=== PATIENT | female | born 1965 | race Caucasian/White ===

== ENCOUNTER 2016-12-14 11:14 | Day surgery (SDC) | payer OTHER ==
[~2016-12-14] VITALS: Ht 167.6 cm; Wt 82.5 kg
[~2016-12-14 11:14] MED LIST: DICY10CA56 PO; LIPA1CAP64 PO; Lactated Ringer's 1,000 ML IV ONE; METO25TA99 PO
[2016-12-14] MEDS ORDERED: Propofol 10,000 mCg/mL 20 mL Inj ONE (11:15)
[2016-12-14 11:41] VITALS: BP 141/77; PULSE 61; RESP 16; O2SAT 99
[2016-12-14] MEDS ORDERED: Lactated Ringer's 1,000 ML IV SCH (12:22)
[2016-12-14] MEDS ORDERED: MetoCLOpramide 5 mg/mL 2 mL Inj IVPUSH PRN (12:25)
[2016-12-14] MEDS ORDERED: Ondansetron 2 mg/mL 2 mL Inj IVPUSH PRN (12:25)
[2016-12-14 12:49] VITALS: BP 121/68; PULSE 63; RESP 14; O2SAT 100
[2016-12-14 12:57] VITALS: BP 138/86; PULSE 57; RESP 14; O2SAT 99
--- NOTE | 2016-12-14 13:54 | ENDO ---
[address] [address] ENDOSCOPY PROCEDURE PATIENT: CARMEN KELLER : 1965 MR#: [id number] ADMIT: 12/14/2016 JOB ID: [id number] DATE OF SERVICE: 12/14/2016 TYPE OF OPERATION: 1. Esophagogastroduodenoscopy with biopsy. 2. Colonoscopy with biopsy. PREOPERATIVE DIAGNOSIS(ES): 1. Epigastric pain. 2. Diarrhea. POSTOPERATIVE DIAGNOSIS(ES): 1. Normal upper endoscopy, status post biopsy. 2. Sigmoid diverticulosis. 3. Small internal hemorrhoids. ANESTHESIA: Monitored anesthesia care. COMPLICATIONS: None. BLOOD LOSS: Minimal. DESCRIPTION OF PROCEDURE: After risks and benefits explained to the patient, informed consent was obtained. After anesthesia administered, upper endoscope was then inserted in the mouth, intubating into the esophagus, stomach, second portion of duodenum. Mucosa carefully examined. After procedure was done, the scope was withdrawn and the procedure terminated. A colonoscope was then inserted from the rectum to terminal ileum. Mucosa carefully examined. Prep of the patient was excellent. After procedure was done, the scope withdrawn and procedure terminated. FINDINGS: Upon inspection of the esophagus, the esophagus was normal without masses, ulcers, lesions. Z-line located 40 cm from incisors. Upon entering stomach, stomach was normal without masses, ulcers, or lesions. Retroflexion was normal. Duodenal bulb, first and second portions normal. Biopsies taken of the duodenum, antrum and body of stomach. Upon inspection of the anus, no masses, hemorrhoids, ulcers, or fissures that were seen. Throughout the entire examination, there was mild sigmoid diverticulosis that was seen. No polyps or masses were seen. Retroflexion showed small internal hemorrhoids. Biopsies taken of the terminal ileum and random colon. IMPRESSIONS: 1. Small internal hemorrhoids. 2. Sigmoid diverticulosis. 3. Normal endoscopy, status post biopsy. RECOMMENDATION: Await pathology results. Follow up in GI clinic as needed.
--- NOTE | 2016-12-14 19:38 | PCM.HPANE ---
Patient Data Surgeon Admitting Provider: Attending Provider:Baldemar Snowden MD Primary Care Physician:Ifeanyi De La Cruz MD Other Provider:[facility] Reason for Visit Diarrhea, Epigastric Pain Ht/WT & BMI Body Mass Index Allergies Coded Allergies: No Known Drug Allergies (Verified Allergy, Unknown, 12/13/16) Medications Reported Medications Metoprolol Succinate ER 25 Mg Tab.er.24h25 Mg PO DAILY Ref 0 12/13/16 Lipase/Protease/Amylase (Creon DR)3,000 Unit Capsule1 Capsule PO 12/13/16 Dicyclomine (Bentyl)10 Mg Sbwhocz24 Mg PO 12/13/16 Stop/Bang Risk Assessment Category Category 1A: Patient has history of documented sleep apnea, and HAS NOT received any narcotic, sedative or anesthesia administration during this stay. Category 1B: Patient has history of documented sleep apnea, and HAS received any narcotic , sedative or anesthesia administration during this stay Category 2: Patient has SUSPECTED Obstructive Sleep Apnea, and HAS received any narcotic , sedative or anesthesia administration during this stay. Category 3: Patient has SUSPECTED Obstructive Sleep Apnea and HAS NOT received narcotic, sedative or anesthesia administration during this stay. Category 4: Outpatient in Procedural Areas with known sleep apnea or who screen positive for High Risk via the STOP/BANG questionnaire. Exam Exam General Appearance: Alert, Oriented X3, Cooperative, No Acute Distress HEENT/AIRWAY: MP 2 Lungs: Clear to Auscultation, Normal Air Movement Heart: Exam Unremarkable, Regular Rate/Rhythm, No Murmurs/Rubs/Gallops Plan Impression Patient chart reviewed, patient interviewed and anesthestic plan with risks, benefits, and alternatives discussed, and informed consent obtained. NPO Status: > 8hrs ASA Physical Status: ASA2 Mod Systemic Disease Anesthetic Plan: MAC Bene/Risks/Altern/Consents: Yes HP Complete Prior to Induction: Yes Reyes Parada MD Dec 14, 2016 08:06
--- NOTE | 2016-12-14 19:39 | PCM.ANEP1 ---
Post Anesthesia Phase 1 PACU Phase 1 Assessment Vital Signs Vital Signs Date Time Temp Pulse Resp B/P Pulse Ox O2 Delivery O2 Flow Rate FiO2 12/14/16 12:57 57 14 138/86 99 Room Air 12/14/16 12:49 63 14 121/68 100 Room Air 12/14/16 11:41 61 16 141/77 99 Room Air Anesthetic Administered: MAC Level of Alertness: Awake, talking GLYNN's with Equal Strength: Yes Pain: No Nausea or Vomiting: No Oxygen Delivery: Room Air Lungs: Clear to Auscultation, Normal Air Movement Dermatome Level: Full Sensation Reyes Parada MD Dec 14, 2016 19:39
--- NOTE | 2016-12-14 19:39 | PCM.ANEP2 ---
Post Anesthesia Evaluation ASA/CMS Post Anesthesia VS in Patient's Normal Range?: Yes Resp Stable; Airway Patent?: Yes CV Function & Hydration Stable: Yes Mental Status Recovered?: Yes Pain control Satisfactory?: Yes N/V Control Satisfactory?: Yes Reyes Parada MD Dec 14, 2016 19:39
--- NOTE | 2016-12-17 11:41 | PATH ---
SURGICAL PATHOLOGY Attending Physician:Baldemar Snowden MD CASE STATUS: Signed Out PATIENT NAME: CARMEN KELLER PID: [id number] : 1965 DATE COLLECTED:12/14/2016 20:35 SPECIMEN: 1: Duodenum, Biopsy 2: Stomach, Antrum, Biopsy 3: Gastric, Biopsy 4: Ileum, Biopsy 5: Colon, Biopsy CLINICAL HISTORY: 1). DUODENUM 2). ANTRUM 3). GASTRIC BODY 4). TERMINAL ILEUM 5). RANDOM COLON FINAL DIAGNOSIS: 1.DUODENUM BIOPSY: FRAGMENTS OF NORMAL-APPEARING SMALL BOWEL MUCOSA. Normal delicate mucosal villi present. Negative for significant inflammation, dysplasia and malignancy. 2.BIOPSY, GASTRIC ANTRUM: MILD CHRONIC GASTRITIS INVOLVING ANTRAL MUCOSA. Negative for evidence of Helicobacter. Negative for intestinal metaplasia. Negative for dysplasia and malignancy. 3.BIOPSIES, GASTRIC BODY: SUPERFICIAL MILD CHRONIC GASTRITIS INVOLVING FUNDIC MUCOSA. Negative for evidence of Helicobacter. Negative for intestinal metaplasia. Negative for dysplasia and malignancy. 4.TERMINAL ILEUM BIOPSY: FRAGMENTS OF NORMAL-APPEARING TERMINAL ILEUM MUCOSA. Negative for granulomas. Negative for significant inflammation, dysplasia and malignancy. 5.RANDOM COLON BIOPSIES: FRAGMENTS OF NORMAL-APPEARING COLON MUCOSA. Negative for significant architectural distortion. Negative for significant inflammation, dysplasia and malignancy. ICD10 code K29.70 GROSS DESCRIPTION: The specimen is received in five formalin filled containers labeled with the patient's name. 1). The specimen is sublabeled "duodenum" and consists of 2 portions of tissue which aggregate to 0.4 x 0.3 x 0.2 CM. The specimen is entirely submitted in cassettes 1A. 2). The specimen is sublabeled "antrum" and consists of 2 portions of tissue which aggregate to 0.3 x 0.3 x 0.2 CM. The specimen is entirely submitted in cassette 2A. 3). The specimen is sublabeled "gastric body" and consists of 3 portions of tissue which aggregate to 0.3 x 0.3 x 0.2 CM. The specimen is entirely submitted in cassettes 3A. 4). The specimen is sublabeled "terminal ileum" and consists of a 0.4 x 0.3 x 0.2 CM portion of tissue which is entirely submitted in cassette 4A. 5). The specimen is sublabeled "random colon" and consists of multiple portions of tissue which aggregate to 0.5 x 0.5 x 0.3 CM. The specimen is entirely submitted in cassette 5A. 12/14/2016 DAC MICRO DESCRIPTION: See diagnosis. ICD-9 CODES: CPT CODES: 1: 67882 2: 30557 3: 81035 4: 66469 5: 51877 Electronically Signed Out Julio Caballero MD [facility] Pathology [facility] [address], [place] [address] Technical component performed at [facility], [facility] [address], [place], [address]
== END 2016-12-14 23:59 | disposition home or self-care (01) ==
LOC: END 11:14
PROVIDERS: ATTEND Internal Medicine Gastroenterology
DX: R19.7 Diarrhea, unspecified (principal); K57.30 Diverticulosis of large intestine without perforation or abscess without bleeding; R10.13 Epigastric pain; K64.8 Other hemorrhoids; K29.30 Chronic superficial gastritis without bleeding; I10 Essential (primary) hypertension; Z80.0 Family history of malignant neoplasm of digestive organs
CPT/HCPCS: 43239; 45380; 88305; J7120